=== PATIENT | female | born 1950 | race Caucasian/White ===

== ENCOUNTER → 2017-03-02 | Outpatient (CLI) | payer MEDICARE ==
[~2017-03-02] MED LIST: ALBU90AE INH; CYCL5TAB PO; FURO20TA3 PO; GABA600T2 PO; POTA10TA11 PO; TRAZ50TA18 PO; VENL150C PO
== END | disposition home or self-care (01) ==
LOC: CFH 08:30
PROVIDERS: ATTEND Internal Medicine Critical Care Medicine
DX: R09.02 Hypoxemia (principal); Z87.891 Personal history of nicotine dependence
CPT/HCPCS: G0297

== ENCOUNTER → 2017-03-11 | Outpatient (CLI) | payer MEDICARE | LOC: CARD 13:27 | PROVIDERS: ATTEND Internal Medicine Critical Care Medicine | DX: J44.9 Chronic obstructive pulmonary disease, unspecified (principal) | CPT/HCPCS: 94060; 94620; 94726; 94729 ==

== ENCOUNTER → 2017-04-27 | Outpatient (CLI) | payer MEDICARE | END | disposition home or self-care (01) | LOC: CFH 13:37 | PROVIDERS: ATTEND Internal Medicine Cardiovascular Disease | DX: I25.10 Atherosclerotic heart disease of native coronary artery without angina pectoris (principal) | CPT/HCPCS: 93306 ==

== ENCOUNTER → 2018-04-19 | Outpatient (CLI) | payer MEDICARE | LOC: CFH 12:19 | PROVIDERS: ATTEND Nurse Practitioner Family | DX: R05 Cough (principal) | CPT/HCPCS: 71046 ==

== ENCOUNTER → 2018-05-10 | Outpatient (CLI) | payer MEDICARE | END | disposition home or self-care (01) | LOC: CFH 10:29 | PROVIDERS: ATTEND Internal Medicine Critical Care Medicine | DX: J43.2 Centrilobular emphysema (principal); J84.10 Pulmonary fibrosis, unspecified | CPT/HCPCS: 71250 ==

== ENCOUNTER → 2018-08-19 | Outpatient (CLI) | payer MEDICARE ==
[~2018-08-19] MED LIST changes: +TRAZ-136 PO; -TRAZ50TA18 PO
== END | disposition home or self-care (01) ==
LOC: LAB 15:10
PROVIDERS: ATTEND Internal Medicine Critical Care Medicine
DX: J44.9 Chronic obstructive pulmonary disease, unspecified (principal)
CPT/HCPCS: 36600; 82803

== ENCOUNTER → 2018-08-23 | Outpatient (CLI) | payer MEDICARE ==
[~2018-08-23] MED LIST changes: +OMNIPAQUE 350 MG/ML, 100ML BOTTLE ONE
== END | disposition home or self-care (01) ==
LOC: CFH 09:04
PROVIDERS: ATTEND Internal Medicine Critical Care Medicine
DX: J43.2 Centrilobular emphysema (principal); J84.10 Pulmonary fibrosis, unspecified; F17.211 Nicotine dependence, cigarettes, in remission
CPT/HCPCS: 71275; Q9967

== ENCOUNTER 2019-09-01 07:08 | Day surgery (SDC) | payer MEDICARE ==
[~2019-09-01] VITALS: Ht 167.6 cm; Wt 86.3 kg
[~2019-09-01 07:08] MED LIST changes: +ASPI-496 PO; +BUPIVACAINE/PF 0.5% ONE; -GABA600T2 PO; +GABA600T7 PO; +ISOSULFAN BLUE 10 MG/ML, 5ML IV ONE; -OMNIPAQUE 350 MG/ML, 100ML BOTTLE ONE; +PRAV40TA2 PO; +TIOT4MIS3 INH; -TRAZ-136 PO; +TRAZ50TA66 PO; +UMEC1DIS INH
[2019-09-01 09:39] VITALS: BP 117/87
[2019-09-01] MEDS ORDERED: LACTATED RINGERS 1,000 ML IV SCH (09:39)
[2019-09-01] MEDS ORDERED: ACETAMINOPHEN 500 MG TABLET PO ONE (10:00)
[2019-09-01] MEDS ORDERED: ONDANSETRON ODT 8 MG PO ONE (10:00)
[2019-09-01] MEDS ORDERED: GABAPENTIN 300 MG CAPSULE PO ONE (10:00)
[2019-09-01] MEDS ORDERED: FENTANYL PF 250 MCG/5ML ONE (10:17)
[2019-09-01] MEDS ORDERED: SODIUM BICARBONATE 4.0%, 5ML ONE (10:26)
[2019-09-01] MEDS ORDERED: LIDOCAINE 1%-EPI 1:100K, 20ML ONE (10:26)
[2019-09-01] MEDS ORDERED: LIDOCAINE 2%, 20ML ONE (10:26)
[2019-09-01] MEDS ORDERED: PHENYLEPHRINE 10 MG/ML ONE (10:59)
[2019-09-01] MEDS ORDERED: EPINEPHRINE 1 MG/ML, 1ML INFIL ONE (11:28)
[2019-09-01] MEDS ORDERED: PROMETHAZINE 25 MG/ML, 1ML IV PRN (11:30)
[2019-09-01] MEDS ORDERED: FENTANYL PF 100 MCG/2ML IV PRN (11:30)
[2019-09-01] MEDS ORDERED: OXYcodone 5 MG/5 ML ORAL.SOL UDC PO PRN (11:30)
[2019-09-01] MEDS ORDERED: LABETALOL 5MG/ML, 20ML IV PRN (11:30)
[2019-09-01] MEDS ORDERED: HYDROmorphone 2 MG/ML, 1ML IVPush PRN (11:30)
[2019-09-01] MEDS ORDERED: hydrALAzine 20 MG/ML, 1ML IV PRN (11:30)
[2019-09-01] MEDS ORDERED: ALBUTEROL/IPRATROPIUM 2.5MG/0.5MG, 3 ML NPPB PRN (11:30)
[2019-09-01] MEDS ORDERED: MIDAZOLAM 1 MG/ML, 2ML IV PRN (11:30)
[2019-09-01] MEDS ORDERED: PROPOFOL 10 MG/ML, 20ML ONE (12:09)
[2019-09-01] MEDS ORDERED: ONDANSETRON 2MG/ML, 2ML ONE (12:09)
[2019-09-01] MEDS ORDERED: CEFAZOLIN 1,000 MG ONE (12:09)
[2019-09-01] MEDS ORDERED: DEXAMETHASONE 4 MG/ML, 1ML ONE (12:09)
== END 2019-09-01 15:55 | disposition home or self-care (01) ==
LOC: SDC 07:08 → EDSTATUS 11:30 → OUT 15:55
PROVIDERS: ATTEND Surgery
DX: C50.812 Malignant neoplasm of overlapping sites of left female breast (principal); J44.9 Chronic obstructive pulmonary disease, unspecified; E78.5 Hyperlipidemia, unspecified; I25.10 Atherosclerotic heart disease of native coronary artery without angina pectoris; F32.9 Major depressive disorder, single episode, unspecified; E66.9 Obesity, unspecified; Z68.30 Body mass index [BMI] 30.0-30.9, adult; Z79.82 Long term (current) use of aspirin; Z79.899 Other long term (current) drug therapy; Z87.891 Personal history of nicotine dependence; Z85.41 Personal history of malignant neoplasm of cervix uteri; Z96.641 Presence of right artificial hip joint; Z99.81 Dependence on supplemental oxygen; Z80.3 Family history of malignant neoplasm of breast; Z80.41 Family history of malignant neoplasm of ovary; Z98.890 Other specified postprocedural states
CPT/HCPCS: 19301; 38525; 38792; 76098; 88307; 88329; 88333; 88342; A9541; J0171; J0690; J1100; J2370; J2405; J2704; J3010; J3490; J7120; Q0162; 19281

== ENCOUNTER 2019-10-03 07:31 | Outpatient (CLI) | payer MEDICARE ==
[~2019-10-03 07:31] MED LIST changes: -BUPIVACAINE/PF 0.5% ONE; -ISOSULFAN BLUE 10 MG/ML, 5ML IV ONE
== END 2019-10-03 23:59 | disposition home or self-care (01) ==
LOC: ROC 07:31
PROVIDERS: ATTEND Radiology Radiation Oncology
DX: C50.411 Malignant neoplasm of upper-outer quadrant of right female breast (principal); Z87.891 Personal history of nicotine dependence
CPT/HCPCS: G0463

== ENCOUNTER 2019-12-09 10:04 | Outpatient (CLI) | payer MEDICARE | END 2019-12-09 23:59 | disposition home or self-care (01) | LOC: ROC 10:04 | PROVIDERS: ATTEND Radiology Radiation Oncology | DX: C50.411 Malignant neoplasm of upper-outer quadrant of right female breast (principal); Z79.899 Other long term (current) drug therapy | CPT/HCPCS: G0463 ==

== ENCOUNTER → 2020-08-15 | Outpatient (CLI) | payer MEDICARE | END | disposition home or self-care (01) | LOC: CFH 12:52 | PROVIDERS: ATTEND Nurse Practitioner Family | DX: Z12.2 Encounter for screening for malignant neoplasm of respiratory organs (principal); J43.2 Centrilobular emphysema; I25.10 Atherosclerotic heart disease of native coronary artery without angina pectoris; J98.4 Other disorders of lung; M51.34 Other intervertebral disc degeneration, thoracic region; Z87.891 Personal history of nicotine dependence | CPT/HCPCS: G0297 ==